=== PATIENT | female | born 1950 | race Caucasian/White ===

== ENCOUNTER → 2017-01-01 | Outpatient (CLI) | payer MEDICARE, MEDICAID ==
[~2017-01-01] MED LIST: ACET325T14 PO; ARIP5TAB6 PO; ASPI-496 PO; ATOR20TA9 PO; AZIT500T4 PO; BACL-19 PO; BENADRYL PRN; CA C1TAB39 PO; CITA20TA5 PO; CITA40TA12 PO; DILT180T7 PO; FAMO20TA7 PO; FLUT1DIS IH; GABA300C10 PO; LINA5TAB PO; METO25TA35 PO; OXYB10TA PO; TRAZ100T15 PO; [UNRECOGNIZED DRUG - OTHER]
== END | disposition home or self-care (01) ==
LOC: CFH 08:54
PROVIDERS: ATTEND Nurse Practitioner Family
DX: K76.0 Fatty (change of) liver, not elsewhere classified (principal)
CPT/HCPCS: 76700

== ENCOUNTER 2017-04-03 21:12 | Inpatient (IN) | payer MEDICARE, MEDICAID ==
[~2017-04-03] VITALS: Ht 162.6 cm; Wt 94.5 kg
[~2017-04-03 21:12] MED LIST changes: -AZIT500T4 PO; +AZIT500T77 PO
[2017-04-03 22:06] LABS: IS PT STATUS REG ER OR PRE ER? YES
[2017-04-03] MEDS ORDERED: ERGO500017 PO (22:11)
[2017-04-03] MEDS ORDERED: FLUT1AER INH (22:18)
[2017-04-03] MEDS ORDERED: SODIUM CHLORIDE 0.9% 1,000 ML IV ONE (22:48)
[2017-04-03] MEDS ORDERED: ONDANSETRON 2MG/ML, 2ML IVPush PRN (23:00)
[2017-04-04 01:04] VITALS: BP 125/56
[2017-04-04 02:00] VITALS: BP 141/78
[2017-04-04] MEDS ORDERED: LABETALOL 5MG/ML, 20ML IVPush PRN (03:30)
[2017-04-04] MEDS ORDERED: DEXTROSE 4 GM TAB.CHEW PO PRN (03:30)
[2017-04-04] MEDS ORDERED: ASPIRIN 325 MG TABLET EC PO ONE (03:30)
[2017-04-04] MEDS ORDERED: ONDANSETRON 2MG/ML, 2ML IVPush PRN (03:30)
[2017-04-04] MEDS ORDERED: DEXTROSE 50%, 50ML SYRINGE IVPush PRN (03:30)
[2017-04-04] MEDS ORDERED: GLUCAGON 1 MG IM PRN (03:30)
[2017-04-04 03:54] LABS: ASPARTATE AMINO TRANSFERASE 14 U/L (15-37); BLOOD UREA NITROGEN 21 mg/dL (7-18)
[2017-04-04 04:15] LABS: IS PT STATUS REG ER OR PRE ER? NO
[2017-04-04] MEDS: ENOXAPARIN 40 MG/0.4 ML SQ SCH (04:18)
[2017-04-04] MEDS: SODIUM CHLORIDE 0.9% 1,000 ML IV SCH ×2 (04:19→13:37)
[2017-04-04] MEDS: BACLOFEN 10 MG TABLET PO SCH ×4 (06:05→21:05)
[2017-04-04 08:30] VITALS: BP 150/84
[2017-04-04] MEDS: INSULIN ASPART 100 UNITS/ML, PEN SQ-INSULIN SCH ×4 (09:21→21:06)
[2017-04-04] MEDS: CITALOPRAM 20 MG TABLET PO SCH (09:24)
[2017-04-04] MEDS: SODIUM CHLORIDE FLUSH 10ML SYR IVF SCH ×2 (09:24→21:07)
[2017-04-04] MEDS: OXYBUTYNIN CHLORIDE 5 MG TABLET PO SCH ×2 (09:24→21:05)
[2017-04-04] MEDS: GABAPENTIN 300 MG CAPSULE PO SCH ×2 (09:24→21:05)
[2017-04-04 10:11] LABS: IS PT STATUS REG ER OR PRE ER? NO
[2017-04-04] MEDS: FLUTICASONE/VILANTEROL 100-25MCG/INH INH SCH (12:28)
[2017-04-04 14:52] VITALS: BP 134/60
[2017-04-04 18:12] VITALS: BP 142/72
[2017-04-04 20:00] VITALS: BP 137/78
[2017-04-04] MEDS ORDERED: ATORVASTATIN 20 MG TABLET PO SCH (21:00)
[2017-04-05] MEDS: SODIUM CHLORIDE 0.9% 1,000 ML IV SCH ×2 (01:34→12:15)
[2017-04-05 02:00] VITALS: BP 153/84
[2017-04-05] MEDS: BACLOFEN 10 MG TABLET PO SCH ×3 (05:00→17:05)
[2017-04-05] MEDS: ENOXAPARIN 40 MG/0.4 ML SQ SCH (05:00)
[2017-04-05] MEDS: INSULIN ASPART 100 UNITS/ML, PEN SQ-INSULIN SCH ×3 (07:00→16:00)
[2017-04-05 08:11] VITALS: BP 159/82
[2017-04-05] MEDS: FLUTICASONE/VILANTEROL 100-25MCG/INH INH SCH (08:34)
[2017-04-05] MEDS: OXYBUTYNIN CHLORIDE 5 MG TABLET PO SCH (08:35)
[2017-04-05] MEDS: GABAPENTIN 300 MG CAPSULE PO SCH (08:35)
[2017-04-05] MEDS: CITALOPRAM 20 MG TABLET PO SCH (08:35)
[2017-04-05] MEDS: SODIUM CHLORIDE FLUSH 10ML SYR IVF SCH (09:17)
[2017-04-05 14:10] VITALS: BP 170/78
== END 2017-04-05 18:37 | disposition home health service (06) | DRG 67 ==
LOC: EDBD 21:12 → MERGE 21:12 → ED 21:37 → EDIP 23:55 → CCU 04-04 00:53 → 4EST 04-04 16:44 → CCU 04-04 16:46 → 4EST 04-04 17:51
PROVIDERS: ADMIT Internal Medicine; ATTEND Internal Medicine
DX: I65.22 Occlusion and stenosis of left carotid artery (principal); G93.41 Metabolic encephalopathy; G81.94 Hemiplegia, unspecified affecting left nondominant side; I10 Essential (primary) hypertension; E11.65 Type 2 diabetes mellitus with hyperglycemia; E86.0 Dehydration; E11.40 Type 2 diabetes mellitus with diabetic neuropathy, unspecified; E11.36 Type 2 diabetes mellitus with diabetic cataract; E78.5 Hyperlipidemia, unspecified; F32.9 Major depressive disorder, single episode, unspecified; K21.9 Gastro-esophageal reflux disease without esophagitis; R26.2 Difficulty in walking, not elsewhere classified; C53.9 Malignant neoplasm of cervix uteri, unspecified; E66.9 Obesity, unspecified; Z68.35 Body mass index [BMI] 35.0-35.9, adult; Z79.82 Long term (current) use of aspirin; Z88.6 Allergy status to analgesic agent; Z88.5 Allergy status to narcotic agent; Z88.0 Allergy status to penicillin; Z88.8 Allergy status to other drugs, medicaments and biological substances; Z91.018 Allergy to other foods
CPT/HCPCS: 36415; 70450; 70551; 71010; 80047; 80053; 80061; 82962; 83036; 84443; 84484; 85025; 85610; 85730; 87081; 93005; 93306; 93880; 96360; 96361; J1650; J1815; J7030

== ENCOUNTER → 2017-04-25 | Outpatient (CLI) | payer MEDICARE, MEDICAID ==
[~2017-04-25] MED LIST changes: +ERGO500017 PO; +FLUT1AER INH
== END | disposition home or self-care (01) ==
LOC: CVU 07:43
PROVIDERS: ATTEND Internal Medicine Interventional Cardiology
DX: I70.202 Unspecified atherosclerosis of native arteries of extremities, left leg (principal); I77.1 Stricture of artery; I73.9 Peripheral vascular disease, unspecified; E11.9 Type 2 diabetes mellitus without complications; E78.5 Hyperlipidemia, unspecified; I10 Essential (primary) hypertension; Z87.891 Personal history of nicotine dependence; Z86.73 Personal history of transient ischemic attack (TIA), and cerebral infarction without residual deficits
CPT/HCPCS: 93922; 93925

== ENCOUNTER 2017-06-05 10:19 | Emergency (ER) | payer MEDICARE, MEDICAID ==
[~2017-06-05] VITALS: Ht 162.6 cm; Wt 92.0 kg
[~2017-06-05 10:19] MED LIST changes: +ARIP5TAB13 PO; -ARIP5TAB6 PO; +AZIT500T5 PO; -AZIT500T77 PO; +CLOP75TA52 PO; +DIPH25TA65 PO; +METF500T4 PO; +SENN1TAB67 PO
[2017-06-05 12:00] VITALS: BP 135/70
== END 2017-06-05 12:02 | disposition home or self-care (01) ==
LOC: ED 11:16
DX: S40.021A Contusion of right upper arm, initial encounter (principal); S80.12XA Contusion of left lower leg, initial encounter; K21.9 Gastro-esophageal reflux disease without esophagitis; I10 Essential (primary) hypertension; E11.9 Type 2 diabetes mellitus without complications; Z86.73 Personal history of transient ischemic attack (TIA), and cerebral infarction without residual deficits; W01.0XXA Fall on same level from slipping, tripping and stumbling without subsequent striking against object, initial encounter; Y93.89 Activity, other specified; Y92.009 Unspecified place in unspecified non-institutional (private) residence as the place of occurrence of the external cause; Y99.9 Unspecified external cause status
CPT/HCPCS: 99284

== ENCOUNTER 2017-09-05 11:29 | Emergency (ER) | payer MEDICARE, MEDICAID ==
[~2017-09-05] VITALS: Ht 157.5 cm; Wt 90.0 kg
[2017-09-05] MEDS ORDERED: SODIUM CHLORIDE FLUSH 10ML SYR IVF ONE (12:00)
[2017-09-05 12:06] LABS: BASOPHILS # (AUTO) 0.01 x10^3/uL (0-0.1); BASOPHILS % (AUTO) 0 % (0-1); EOSINOPHILS % (AUTO) 1 % (1-7); LYMPHOCYTES # (AUTO) 1.28 x10^3/uL (1-3.4); LYMPHOCYTES % (AUTO) 18 % (22-44); MD NO; MEAN CORPUSCULAR HEMOGLOBIN 29.4 pg (27.0-34.8); MEAN CORPUSCULAR HGB CONC 33.3 g/dL (32.4-35.8); MEAN CORPUSCULAR VOLUME 88.5 fL (80-100); MEAN PLATELET VOLUME 9.7 fL (7.4-10.4); MONOCYTES # (AUTO) 0.45 x10^3/uL (0.2-0.8); MONOCYTES % (AUTO) 6 % (2-9); NEUTROPHILS # (AUTO) 5.26 x10^3/uL (1.8-6.8); NEUTROPHILS % (AUTO) 74 % (42-75); PLATELET COUNT 131 x10^3/uL (130-400); RED BLOOD COUNT 5.45 x10^6/uL (3.82-5.3); RED CELL DISTRIBUTION WIDTH 13.2 % (9.6-15.2)
[2017-09-05 12:17] LABS: ALBUMIN 3.8 g/dL (3.4-5.0); ANION GAP 3 mmol/L (5-15); CALCIUM 9.8 mg/dL (8.5-10.1); CHLORIDE 107 mmol/L (98-107); CREATININE 0.73 mg/dL (0.55-1.02)
[2017-09-05 14:47] VITALS: BP 138/72
== END 2017-09-05 15:45 | disposition home or self-care (01) ==
LOC: ED 14:02
DX: G45.9 Transient cerebral ischemic attack, unspecified (principal); K21.9 Gastro-esophageal reflux disease without esophagitis; I10 Essential (primary) hypertension; Z88.0 Allergy status to penicillin; Z88.6 Allergy status to analgesic agent
CPT/HCPCS: 36415; 70450; 80048; 82040; 85025; 93005; 99285

== ENCOUNTER → 2017-09-05 | Outpatient (CLI) | payer MEDICARE, MEDICAID | END | disposition home or self-care (01) | LOC: CFH 08:47 | PROVIDERS: ATTEND Licensed Practical Nurse | DX: Z12.31 Encounter for screening mammogram for malignant neoplasm of breast (principal) | CPT/HCPCS: G0202 ==

== ENCOUNTER → 2017-10-23 | Outpatient (CLI) | payer MEDICARE, MEDICAID ==
[~2017-10-23] MED LIST changes: +OMNIPAQUE 350 MG/ML, 100ML BOTTLE ONE
== END | disposition home or self-care (01) ==
LOC: CFH 08:44
PROVIDERS: ATTEND Surgery Vascular Surgery
DX: I65.23 Occlusion and stenosis of bilateral carotid arteries (principal)
CPT/HCPCS: 70498; 82565; Q9967

== ENCOUNTER → 2017-11-08 | Outpatient (CLI) | payer MEDICARE, MEDICAID ==
[~2017-11-08] MED LIST changes: -OMNIPAQUE 350 MG/ML, 100ML BOTTLE ONE
== END | disposition home or self-care (01) ==
LOC: CFH 09:54
PROVIDERS: ATTEND Nurse Practitioner Family
DX: M54.6 Pain in thoracic spine (principal)
CPT/HCPCS: 72072

== ENCOUNTER 2018-07-07 23:57 | Emergency (ER) | payer MEDICARE, MEDICAID ==
[~2018-07-07] VITALS: Ht 160 cm; Wt 84.4 kg
[~2018-07-07 23:57] MED LIST changes: -CITA20TA5 PO; +CITA20TA6 PO; +METF500T17 PO; -METF500T4 PO; +TRAZ-137 PO; -TRAZ100T15 PO
[2018-07-08 03:17] VITALS: BP 141/62
== END 2018-07-08 03:20 | disposition home or self-care (01) ==
LOC: ED 07-08 00:53
DX: S16.1XXA Strain of muscle, fascia and tendon at neck level, initial encounter (principal); S06.320A Contusion and laceration of left cerebrum without loss of consciousness, initial encounter; M25.552 Pain in left hip; E11.9 Type 2 diabetes mellitus without complications; I10 Essential (primary) hypertension; J44.9 Chronic obstructive pulmonary disease, unspecified; F17.200 Nicotine dependence, unspecified, uncomplicated; W01.0XXA Fall on same level from slipping, tripping and stumbling without subsequent striking against object, initial encounter; Y93.89 Activity, other specified; Y92.009 Unspecified place in unspecified non-institutional (private) residence as the place of occurrence of the external cause; Y99.8 Other external cause status
CPT/HCPCS: 70450; 72125; 99284

== ENCOUNTER 2018-09-08 23:54 | Emergency (ER) | payer MEDICARE, MEDICAID ==
[~2018-09-08] VITALS: Ht 160 cm; Wt 86.5 kg
[~2018-09-08 23:54] MED LIST changes: +ALBU18HF INH; +ATOR20TA37 PO; -ATOR20TA9 PO
[2018-09-09] MEDS ORDERED: ACETAMINOPHEN 500 MG TABLET PO ONE (00:30)
[2018-09-09] MEDS ORDERED: ACETAMINOPHEN 500 MG TABLET ONE (00:46)
[2018-09-09 02:18] VITALS: BP 147/70
== END 2018-09-09 02:39 | disposition home or self-care (01) ==
LOC: ED 09-09 00:12
DX: S00.83XA Contusion of other part of head, initial encounter (principal); K21.9 Gastro-esophageal reflux disease without esophagitis; I10 Essential (primary) hypertension; E11.9 Type 2 diabetes mellitus without complications; C53.9 Malignant neoplasm of cervix uteri, unspecified; R51 Headache; F17.200 Nicotine dependence, unspecified, uncomplicated; Z86.73 Personal history of transient ischemic attack (TIA), and cerebral infarction without residual deficits; Z90.49 Acquired absence of other specified parts of digestive tract; W19.XXXA Unspecified fall, initial encounter; Y93.89 Activity, other specified; Y92.009 Unspecified place in unspecified non-institutional (private) residence as the place of occurrence of the external cause; Y99.8 Other external cause status
CPT/HCPCS: 70450; 70486; 71045; 72125; 93005; 99284

== ENCOUNTER 2018-10-01 18:09 | Emergency (ER) | payer MEDICARE, MEDICAID ==
[~2018-10-01] VITALS: Ht 160 cm; Wt 92.0 kg
--- NOTE | 2018-10-01 19:06 | NUR ---
PT REPORT FROM LANIE MILES. PT XR DONE; AWAITING RE-EVAL FROM PROVIDER.
[2018-10-01] MEDS ORDERED: ASPI-496 PO (19:37)
[2018-10-01 19:47] VITALS: BP 148/70
== END 2018-10-01 19:50 | disposition home or self-care (01) ==
LOC: ED 19:20
DX: S63.522A Sprain of radiocarpal joint of left wrist, initial encounter (principal); M19.131 Post-traumatic osteoarthritis, right wrist; K21.9 Gastro-esophageal reflux disease without esophagitis; E78.5 Hyperlipidemia, unspecified; I10 Essential (primary) hypertension; E11.9 Type 2 diabetes mellitus without complications; Z86.73 Personal history of transient ischemic attack (TIA), and cerebral infarction without residual deficits; Z85.41 Personal history of malignant neoplasm of cervix uteri; Z90.49 Acquired absence of other specified parts of digestive tract; F17.200 Nicotine dependence, unspecified, uncomplicated; W19.XXXA Unspecified fall, initial encounter; Y93.89 Activity, other specified; Y92.009 Unspecified place in unspecified non-institutional (private) residence as the place of occurrence of the external cause; Y99.8 Other external cause status
CPT/HCPCS: 29260; 99283

== ENCOUNTER 2019-02-24 11:22 | Inpatient (IN) | payer MEDICARE, MEDICAID ==
[~2019-02-24] VITALS: Ht 160 cm; Wt 84.7 kg
[2019-02-24] MEDS ORDERED: PLEASE ENTER HEIGHT AND WEIGHT MC SCH (11:38)
[2019-02-24] MEDS ORDERED: ONDANSETRON 2MG/ML, 2ML ONE (11:51)
[2019-02-24] MEDS ORDERED: HYDROmorphone 2 MG/ML, 1ML ONE (11:52)
[2019-02-24 11:58] LABS: BASOPHILS # (AUTO) 0.01 x10^3/uL (0-0.1); BASOPHILS % (AUTO) 0 % (0-1); EOSINOPHILS # (AUTO) 0.08 x10^3/uL (0-0.4); EOSINOPHILS % (AUTO) 1 % (1-7); LYMPHOCYTES # (AUTO) 1.09 x10^3/uL (1-3.4); LYMPHOCYTES % (AUTO) 10 % (22-44); MD NO; MEAN CORPUSCULAR HEMOGLOBIN 31.1 pg (27.0-34.8); MEAN CORPUSCULAR HGB CONC 33.2 g/dL (32.4-35.8); MEAN CORPUSCULAR VOLUME 93.5 fL (80-100); MEAN PLATELET VOLUME 8.8 fL (7.4-10.4); MONOCYTES # (AUTO) 0.48 x10^3/uL (0.2-0.8); MONOCYTES % (AUTO) 4 % (2-9); NEUTROPHILS # (AUTO) 9.25 x10^3/uL (1.8-6.8); NEUTROPHILS % (AUTO) 85 % (42-75); PLATELET COUNT 174 x10^3/uL (130-400); RED CELL DISTRIBUTION WIDTH 13.7 % (9.6-15.2)
[2019-02-24] MEDS ORDERED: HYDROmorphone 1 MG/ML, 1ML INJ IVPush PRN (12:00)
[2019-02-24] MEDS ORDERED: ONDANSETRON 2MG/ML, 2ML IVPush ONE (12:00)
[2019-02-24] MEDS ORDERED: SODIUM CHLORIDE FLUSH 10ML SYR IVF ONE (12:00)
--- NOTE | 2019-02-24 12:04 | NUR ---
GLF LAST NIGHT AND COULD NOT GET UP. BACK PAIN, BUTTOCK PAIN AND PAIN TO BACK OF HEAD. MEDICATED FOR PAIN PER ORDERS AND ONTO BED MARTINEZ
[2019-02-24 12:05] LABS: ALBUMIN 3.8 g/dL (3.4-5.0); ANION GAP 4 mmol/L (5-15); CALCIUM 9.7 mg/dL (8.5-10.1); CHLORIDE 108 mmol/L (98-107)
--- NOTE | 2019-02-24 12:07 | NUR ---
CT DELAY;NEED MEDS & BEDPAN
[2019-02-24 12:08] LABS: CREATININE 0.86 mg/dL (0.55-1.02)
--- NOTE | 2019-02-24 12:10 | NUR ---
TO XRAY VIA ELISA
--- NOTE | 2019-02-24 12:51 | NUR ---
BACK ON FLOOR FROM XRAY AND CT. PLACED ON MONITOR. BREATHING EVEN AND UNLABORED
[2019-02-24 13:15] LABS: MICROSCOPIC INDICATED
[2019-02-24 13:16] LABS: CULTURE INDICATED? YES
--- NOTE | 2019-02-24 13:45 | NUR ---
SLEEPING, NO DISTRESS
--- NOTE | 2019-02-24 14:44 | NUR ---
PT UNABLE TO STAND AND BEAR WEIGHT WITH WALKER. LEFT LEG WEAKNESS FROM PREVIOUS STROKE PRONOUNCED AND UNABLE TO STRAIGHTEN OUT LEG. PT NORMALLY USES A WALKER AT HOME. ADDITONALLY ROOM AIR OXYGEN NOTED TO BE 78 PERCENT. MADE AWARE
--- NOTE | 2019-02-24 15:42 | NUR ---
PT SLEEPING. CONTINUE TO OBSERVE
[2019-02-24] MEDS ORDERED: CEFTRIAXONE PMX 1GM/50ML 50 ML ONE (15:51)
[2019-02-24] MEDS: BACLOFEN 10 MG TABLET PO SCH ×2 (16:00→20:41)
[2019-02-24] MEDS ORDERED: DEXTROSE 4 GM TAB.CHEW PO PRN (16:00)
[2019-02-24] MEDS ORDERED: ONDANSETRON 2MG/ML, 2ML IVPush PRN (16:00)
[2019-02-24] MEDS ORDERED: GLUCAGON 1 MG IM PRN (16:00)
[2019-02-24] MEDS ORDERED: DIPHENHYDRAMINE 25 MG CAPSULE PO PRN (16:00)
[2019-02-24] MEDS ORDERED: CEFTRIAXONE PMX 1GM/50ML 50 ML IVPB ONE (16:00)
[2019-02-24] MEDS: INSULIN LISPRO 100 UNITS/ML, PEN SQ-INSULIN SCH ×2 (16:00→20:54)
[2019-02-24] MEDS ORDERED: DEXTROSE 50%, 50ML SYRINGE IVPush PRN (16:00)
--- NOTE | 2019-02-24 17:19 | NUR ---
REPORT TO BASIA DELA CRUZ
[2019-02-24] MEDS ORDERED: ALBUTEROL SULFATE 2.5 MG/3 ML NPPB SCH (18:00)
[2019-02-24] MEDS: NICOTINE 14MG/24 HR PATCH.TD24 TD SCH (18:00)
[2019-02-24 20:36] VITALS: BP 158/75
[2019-02-24] MEDS: LACTULOSE 10 GM/15 ML UDC PO SCH (20:40)
[2019-02-24] MEDS: METOPROLOL TARTRATE 25 MG TABLET PO SCH (20:41)
[2019-02-24] MEDS: ATORVASTATIN 40 MG TABLET PO SCH (20:41)
[2019-02-24] MEDS: GABAPENTIN 300 MG CAPSULE PO SCH (20:41)
[2019-02-24] MEDS: POTASSIUM CHLORIDE 20 MEQ in SODIUM CHLORIDE 0.9% 1,000 ML IV SCH (20:41)
[2019-02-24] MEDS: TRAZODONE 100MG TABLET PO SCH (20:41)
[2019-02-24] MEDS: OXYBUTYNIN CHLORIDE 5 MG TABLET PO SCH (20:41)
[2019-02-24] MEDS: SODIUM CHLORIDE FLUSH 10ML SYR IVF SCH (20:54)
[2019-02-24 22:34] VITALS: BP 147/58
[2019-02-25 00:34] VITALS: BP 134/58
[2019-02-25] MEDS: ACETAMINOPHEN 650 MG/20.3 ML UDC PO PRN ×2 (01:13→05:23)
[2019-02-25 02:07] VITALS: BP 127/56
[2019-02-25] MEDS: POTASSIUM CHLORIDE 20 MEQ in SODIUM CHLORIDE 0.9% 1,000 ML IV SCH ×2 (04:08→13:42)
[2019-02-25 04:09] VITALS: BP 132/66
[2019-02-25 05:13] LABS: CHOL/HDL RATIO 4.3; LDL/HDL RATIO 1.9 (0.5-3.0)
[2019-02-25] MEDS: BACLOFEN 10 MG TABLET PO SCH ×4 (05:23→20:14)
[2019-02-25 05:56] VITALS: BP 131/59
[2019-02-25] MEDS: INSULIN LISPRO 100 UNITS/ML, PEN SQ-INSULIN SCH ×4 (07:00→20:18)
[2019-02-25] MEDS: DILTIAZEM CD 180 MG CAP.ER.24H PO SCH (08:39)
[2019-02-25] MEDS: ASPIRIN 81 MG TABLET CHEW PO/NG SCH (08:39)
[2019-02-25] MEDS: GABAPENTIN 300 MG CAPSULE PO SCH ×2 (08:39→20:13)
[2019-02-25] MEDS: CITALOPRAM 20 MG TABLET PO SCH (08:39)
[2019-02-25] MEDS: METOPROLOL TARTRATE 25 MG TABLET PO SCH ×2 (08:41→20:15)
[2019-02-25] MEDS: FAMOTIDINE 20 MG TABLET PO SCH (08:41)
[2019-02-25] MEDS: SENNA/DOCUSATE TABLET PO SCH (08:42)
[2019-02-25] MEDS: OXYBUTYNIN CHLORIDE 5 MG TABLET PO SCH ×2 (08:42→20:14)
[2019-02-25] MEDS: LACTULOSE 10 GM/15 ML UDC PO SCH ×2 (08:42→20:13)
[2019-02-25] MEDS: SODIUM CHLORIDE FLUSH 10ML SYR IVF SCH ×2 (08:43→20:15)
[2019-02-25] MEDS: ALBUTEROL SULFATE 2.5 MG/3 ML NPPB SCH ×2 (10:15→19:32)
[2019-02-25 14:29] VITALS: BP 135/64
[2019-02-25] MEDS: CEFTRIAXONE PMX 1GM/50ML 50 ML IV SCH (16:19)
[2019-02-25] MEDS: AZITHROMYCIN 500 MG in SODIUM CHLORIDE 0.9% 250 ML IV SCH (16:30)
[2019-02-25 19:03] VITALS: BP 131/79
[2019-02-25] MEDS: ATORVASTATIN 40 MG TABLET PO SCH (20:14)
[2019-02-25] MEDS: TRAZODONE 100MG TABLET PO SCH (20:14)
[2019-02-26] VITALS: BP 133/78
[2019-02-26 04:15] VITALS: BP 118/70
[2019-02-26 05:04] LABS: BASOPHILS # (AUTO) 0.04 x10^3/uL (0-0.1); BASOPHILS % (AUTO) 0 % (0-1); EOSINOPHILS # (AUTO) 0.11 x10^3/uL (0-0.4); EOSINOPHILS % (AUTO) 1 % (1-7); LYMPHOCYTES # (AUTO) 1.29 x10^3/uL (1-3.4); LYMPHOCYTES % (AUTO) 15 % (22-44); MD NO; MEAN CORPUSCULAR HEMOGLOBIN 30.8 pg (27.0-34.8); MEAN CORPUSCULAR HGB CONC 32.5 g/dL (32.4-35.8); MEAN CORPUSCULAR VOLUME 94.6 fL (80-100); MEAN PLATELET VOLUME 8.8 fL (7.4-10.4); MONOCYTES # (AUTO) 0.54 x10^3/uL (0.2-0.8); MONOCYTES % (AUTO) 6 % (2-9); NEUTROPHILS # (AUTO) 6.69 x10^3/uL (1.8-6.8); NEUTROPHILS % (AUTO) 77 % (42-75); PLATELET COUNT 149 x10^3/uL (130-400); RED BLOOD COUNT 4.66 x10^6/uL (3.82-5.3); RED CELL DISTRIBUTION WIDTH 13.9 % (9.6-15.2)
[2019-02-26 05:25] LABS: ALANINE AMINOTRANSFERASE 19 U/L (12-78); ALBUMIN 3.1 g/dL (3.4-5.0); ANION GAP 6 mmol/L (5-15); CALCIUM 9.2 mg/dL (8.5-10.1); CHLORIDE 108 mmol/L (98-107)
[2019-02-26 05:27] LABS: ALKALINE PHOSPHATASE 128 U/L (45-117); BILIRUBIN,TOTAL 0.5 mg/dL (0.2-1.0); CREATININE 0.68 mg/dL (0.55-1.02); TOTAL PROTEIN 6.6 g/dL (6.4-8.2)
[2019-02-26] MEDS: BACLOFEN 10 MG TABLET PO SCH ×3 (05:27→16:13)
[2019-02-26 05:59] LABS: HEMOGLOBIN A1C 6.8 % (4.2-6.3)
[2019-02-26] MEDS: ACETAMINOPHEN 650 MG/20.3 ML UDC PO PRN ×2 (06:29→12:01)
[2019-02-26] MEDS ORDERED: ALBUTEROL SULFATE 2.5 MG/3 ML NPPB PRN (07:30)
[2019-02-26] MEDS: INSULIN LISPRO 100 UNITS/ML, PEN SQ-INSULIN SCH ×3 (08:03→16:00)
[2019-02-26] MEDS: CITALOPRAM 20 MG TABLET PO SCH (08:03)
[2019-02-26] MEDS: OXYBUTYNIN CHLORIDE 5 MG TABLET PO SCH (08:03)
[2019-02-26] MEDS: ASPIRIN 81 MG TABLET CHEW PO/NG SCH (08:04)
[2019-02-26] MEDS: DILTIAZEM CD 180 MG CAP.ER.24H PO SCH (08:04)
[2019-02-26] MEDS: METOPROLOL TARTRATE 25 MG TABLET PO SCH (08:04)
[2019-02-26] MEDS: SENNA/DOCUSATE TABLET PO SCH (08:04)
[2019-02-26] MEDS: LACTULOSE 10 GM/15 ML UDC PO SCH (08:04)
[2019-02-26] MEDS: GABAPENTIN 300 MG CAPSULE PO SCH (08:04)
[2019-02-26] MEDS: NICOTINE 14MG/24 HR PATCH.TD24 TD SCH (08:13)
[2019-02-26] MEDS: FAMOTIDINE 20 MG TABLET PO SCH (08:15)
[2019-02-26 08:21] VITALS: BP 131/87
[2019-02-26] MEDS: ALBUTEROL SULFATE 2.5 MG/3 ML NPPB SCH ×2 (09:00→14:40)
[2019-02-26] MEDS: SODIUM CHLORIDE FLUSH 10ML SYR IVF SCH (09:00)
[2019-02-26] MEDS ORDERED: BUDESONIDE 0.5 MG/2 ML INHA INH SCH (09:00)
[2019-02-26] MEDS ORDERED: ATOR40TA78 PO (12:12)
[2019-02-26] MEDS ORDERED: CEFD300C37 PO (12:12)
[2019-02-26] MEDS ORDERED: AZIT500T5 PO (12:12)
[2019-02-26] MEDS: CEFTRIAXONE PMX 1GM/50ML 50 ML IV SCH (16:00)
[2019-02-26] MEDS: AZITHROMYCIN 500 MG in SODIUM CHLORIDE 0.9% 250 ML IV SCH (16:14)
== END 2019-02-26 17:12 | disposition home health service (06) | DRG 193 ==
LOC: EDBD → MERGE 11:22 → ED 16:16 → EDIP 16:52 → 4WST 18:18
PROVIDERS: ADMIT Internal Medicine; ATTEND Internal Medicine
DX: J18.9 Pneumonia, unspecified organism (principal); J96.01 Acute respiratory failure with hypoxia; I69.354 Hemiplegia and hemiparesis following cerebral infarction affecting left non-dominant side; D75.1 Secondary polycythemia; I48.91 Unspecified atrial fibrillation; E11.9 Type 2 diabetes mellitus without complications; E78.5 Hyperlipidemia, unspecified; F17.210 Nicotine dependence, cigarettes, uncomplicated; F32.9 Major depressive disorder, single episode, unspecified; Z88.6 Allergy status to analgesic agent; I10 Essential (primary) hypertension; Z88.3 Allergy status to other anti-infective agents; Z88.0 Allergy status to penicillin; I65.23 Occlusion and stenosis of bilateral carotid arteries; Z91.018 Allergy to other foods; J44.9 Chronic obstructive pulmonary disease, unspecified; K21.9 Gastro-esophageal reflux disease without esophagitis; M41.9 Scoliosis, unspecified; R29.6 Repeated falls; S00.93XA Contusion of unspecified part of head, initial encounter; Z82.49 Family history of ischemic heart disease and other diseases of the circulatory system; Z85.41 Personal history of malignant neoplasm of cervix uteri; Z99.81 Dependence on supplemental oxygen; W18.39XA Other fall on same level, initial encounter; Y93.89 Activity, other specified; Y92.89 Other specified places as the place of occurrence of the external cause; Y99.8 Other external cause status; M43.17 Spondylolisthesis, lumbosacral region; G93.89 Other specified disorders of brain
CPT/HCPCS: 0399T; 36415; 70450; 70551; 71045; 72072; 72110; 72170; 80048; 80053; 80061; 81001; 82040; 82962; 83036; 84145; 85025; 87086; 93306; 93880; 94640; 96374; 96375; 99285; G0378; J0456; J0696; J1170; J2405; J3480; J7613; J7626; 92523-GN; J1815; J7030; J7050

== ENCOUNTER 2019-11-21 11:54 | Emergency (ER) | payer MEDICARE, MEDICAID ==
[~2019-11-21] VITALS: Ht 160 cm; Wt 85.0 kg
[~2019-11-21 11:54] MED LIST changes: +ACET325C6 PO; +ALEN10TA10 PO; +ATOR40TA78 PO; +AZIT500T10 PO; -AZIT500T5 PO; +CALC1TAB68 PO; +CARV6.2512 PO; +CEFD300C37 PO; +INSU100I11 SQ-INSULIN; +METF850T PO; +NICO-486 TD; -OXYB10TA PO; +OXYB10TA26 PO; +POLY454P4 PO; +SENN-193 PO; -TRAZ-137 PO; +TRAZ-175 PO
--- NOTE | 2019-11-21 12:07 | NUR ---
69 Y/O FEMALE PRESENTS TO ED WITH C/O MGLF. PER REPORT PT FELL THIS MORNING AT 0700 D/T HER "LEGS GIVING OUT." PT STATES IT HAS HAPPENED BEFORE AND THAT'S WHEN SHE HAD HER HIP REPLACED. PT C/O RIGHT SHOULDER PAIN. PT PLACED ON CONT PULSE OX,NIBP, WOOD FLOOR REFINISHER. NO C/O N/V/D, SYNCOPE, CP, SOB. PT WEARS HOME OXYGEN AT 3 LPM
--- NOTE | 2019-11-21 12:12 | NUR ---
PT PLACED ON BED MARTINEZ. PT WAS UNABLE TO URINATE AT THIS TIME. BEDPAN REMOVED.
[2019-11-21] MEDS ORDERED: SODIUM CHLORIDE 0.9% 1,000ML IVBOLUS ONE (12:30)
--- NOTE | 2019-11-21 12:35 | NUR ---
PT TO IMAGING
[2019-11-21 12:45] LABS: BASOPHILS # (AUTO) 0.03 x10^3/uL (0-0.1); BASOPHILS % (AUTO) 0 % (0-1); EOSINOPHILS # (AUTO) 0.07 x10^3/uL (0-0.4); EOSINOPHILS % (AUTO) 1 % (1-7); LYMPHOCYTES # (AUTO) 1.55 x10^3/uL (1-3.4); LYMPHOCYTES % (AUTO) 19 % (22-44); MD NO; MEAN CORPUSCULAR HEMOGLOBIN 31.5 pg (27.0-34.8); MEAN CORPUSCULAR HGB CONC 33.8 g/dL (32.4-35.8); MEAN CORPUSCULAR VOLUME 93.2 fL (80-100); MEAN PLATELET VOLUME 9.3 fL (7.4-10.4); MONOCYTES # (AUTO) 0.44 x10^3/uL (0.2-0.8); MONOCYTES % (AUTO) 5 % (2-9); NEUTROPHILS # (AUTO) 6.11 x10^3/uL (1.8-6.8); NEUTROPHILS % (AUTO) 75 % (42-75); PLATELET COUNT 181 x10^3/uL (130-400); RED BLOOD COUNT 4.36 x10^6/uL (3.82-5.3); RED CELL DISTRIBUTION WIDTH 13.6 % (9.6-15.2)
[2019-11-21 12:50] LABS: ALANINE AMINOTRANSFERASE 34 U/L (12-78); ANION GAP 7 mmol/L (5-15); CALCIUM 9.4 mg/dL (8.5-10.1); CHLORIDE 114 mmol/L (98-107); CREATININE 1.06 mg/dL (0.55-1.02)
[2019-11-21 12:52] LABS: ALKALINE PHOSPHATASE 170 U/L (45-117); BILIRUBIN,TOTAL 0.3 mg/dL (0.2-1.0); CREATINE KINASE, TOTAL 190 U/L (26-192); TOTAL PROTEIN 7.6 g/dL (6.4-8.2)
--- NOTE | 2019-11-21 12:53 | NUR ---
PT BACK FROM IMAGING
--- NOTE | 2019-11-21 13:21 | NUR ---
PT BEING TAKEN TO CT.
[2019-11-21 13:58] VITALS: BP 142/59
--- NOTE | 2019-11-21 13:58 | NUR ---
PT PLACED ON BEDPAN
--- NOTE | 2019-11-21 13:59 | NUR ---
LATE ENTRY FOR 1345 PT BACK FROM IMAGING.
[2019-11-21] MEDS ORDERED: OMNIPAQUE 350 MG/ML, 100ML BOTTLE ONE (14:10)
--- NOTE | 2019-11-21 14:28 | NUR ---
LUNCH BREAK NOTE: PT TAKEN OFF BED MARTINEZ BUT NOT ABLE TO COLLECT UA PT VOIDED PAST BEDPAN. LINENS CHANGED.
--- NOTE | 2019-11-21 15:11 | NUR ---
LATE ENTRY FOR 1501 PT ABLE TO STAND WITH STEADY GAIT. PT STATES "I ALWAYS USE A WALKER AND SCOOTER AT HOME. I FEEL FINE TO GO HOME. I HAVE SOMEONE TO CALL AND THEY WILL BRING MY WALKER."
--- NOTE | 2019-11-21 15:50 | NUR ---
THROUGHPUT: [facility] TO TRANSPORT PT BACK HOME ~1600 TODAY, PER MORE.
--- NOTE | 2019-11-21 16:10 | NUR ---
\Patient/Caregiver given discharge instructions and they have confirmed that they understand the instructions. Patient ambulatory with steady gait. PT LEFT WITH ALL PERSONAL BELONGINGS, INCLUDING PT TRAZODONE, CELL PHONE AND KEYS. . PT LEFT WITH [facility].
== END 2019-11-21 16:13 | disposition home or self-care (01) ==
LOC: ED 14:35
DX: S43.421A Sprain of right rotator cuff capsule, initial encounter (principal); I10 Essential (primary) hypertension; E11.9 Type 2 diabetes mellitus without complications; K21.9 Gastro-esophageal reflux disease without esophagitis; Z86.73 Personal history of transient ischemic attack (TIA), and cerebral infarction without residual deficits; Z85.41 Personal history of malignant neoplasm of cervix uteri; W18.30XA Fall on same level, unspecified, initial encounter; Y93.89 Activity, other specified; Y92.89 Other specified places as the place of occurrence of the external cause; Y99.8 Other external cause status
CPT/HCPCS: 36415; 71045; 73030; 74177; 80053; 80307; 82550; 85025; 93005; 99285; J7030; Q9967

== ENCOUNTER → 2019-11-26 | Outpatient (CLI) | payer MEDICARE, MEDICAID | END | disposition home or self-care (01) | LOC: CFH 12:03 | PROVIDERS: ATTEND Nurse Practitioner Family | DX: S06.9X9A Unspecified intracranial injury with loss of consciousness of unspecified duration, initial encounter (principal); S00.03XA Contusion of scalp, initial encounter; G93.89 Other specified disorders of brain; W18.30XA Fall on same level, unspecified, initial encounter; Y93.89 Activity, other specified; Y92.89 Other specified places as the place of occurrence of the external cause; Y99.8 Other external cause status | CPT/HCPCS: 70450 ==

== ENCOUNTER 2020-01-06 10:21 | Emergency (ER) | payer MEDICARE, MEDICAID ==
[~2020-01-06] VITALS: Ht 160 cm; Wt 83.0 kg
[2020-01-06] MEDS ORDERED: SODIUM CHLORIDE FLUSH 10ML SYR IVF ONE (11:00)
--- NOTE | 2020-01-06 11:41 | NUR ---
DAUGHTER, JOVANI, . OKAY TO UPDATE.
[2020-01-06 11:46] LABS: BASOPHILS # (AUTO) 0.03 x10^3/uL (0-0.1); BASOPHILS % (AUTO) 0 % (0-1); EOSINOPHILS # (AUTO) 0.04 x10^3/uL (0-0.4); EOSINOPHILS % (AUTO) 1 % (1-7); LYMPHOCYTES # (AUTO) 1.52 x10^3/uL (1-3.4); LYMPHOCYTES % (AUTO) 20 % (22-44); MD NO; MEAN CORPUSCULAR HEMOGLOBIN 31.3 pg (27.0-34.8); MEAN CORPUSCULAR HGB CONC 33.1 g/dL (32.4-35.8); MEAN CORPUSCULAR VOLUME 94.8 fL (80-100); MEAN PLATELET VOLUME 8.5 fL (7.4-10.4); MONOCYTES % (AUTO) 5 % (2-9); NEUTROPHILS # (AUTO) 5.77 x10^3/uL (1.8-6.8); NEUTROPHILS % (AUTO) 74 % (42-75); PLATELET COUNT 172 x10^3/uL (130-400); RED BLOOD COUNT 4.71 x10^6/uL (3.82-5.3); RED CELL DISTRIBUTION WIDTH 13.6 % (9.6-15.2)
[2020-01-06 11:52] LABS: MICROSCOPIC NOT IND
[2020-01-06 11:53] LABS: CULTURE INDICATED? NO
--- NOTE | 2020-01-06 11:56 | NUR ---
PT LAYING IN BED, RESPIRATIONS EVEN AND UNLABORED, WATCHING TV, VSS, NO SIGNS OF DISTRESS. WILL CONTINUE TO MONITOR.
[2020-01-06 11:57] VITALS: BP 141/61
[2020-01-06 11:57] LABS: ALANINE AMINOTRANSFERASE 29 U/L (12-78); ALBUMIN 3.9 g/dL (3.4-5.0); ANION GAP 7 mmol/L (5-15); CALCIUM 9.5 mg/dL (8.5-10.1); CHLORIDE 109 mmol/L (98-107); CREATININE 0.81 mg/dL (0.55-1.02)
[2020-01-06 11:59] LABS: ALKALINE PHOSPHATASE 121 U/L (45-117); BILIRUBIN,TOTAL 0.4 mg/dL (0.2-1.0); TOTAL PROTEIN 7.6 g/dL (6.4-8.2)
[2020-01-06] MEDS ORDERED: CLOP75TA52 PO (12:00)
--- NOTE | 2020-01-06 12:28 | NUR ---
pt back from imaging, respirations even and unlabored, laying in bed, no signs of distress.
[2020-01-06] MEDS ORDERED: OMNIPAQUE 350 MG/ML, 100ML BOTTLE ONE (12:29)
--- NOTE | 2020-01-06 13:13 | NUR ---
PT BEING EDUCATED ABOUT [facility] C[facility]. VSS.
== END 2020-01-06 13:42 | disposition home or self-care (01) ==
LOC: ED 11:11
DX: R10.13 Epigastric pain (principal); E11.9 Type 2 diabetes mellitus without complications; I10 Essential (primary) hypertension; E78.5 Hyperlipidemia, unspecified; K21.9 Gastro-esophageal reflux disease without esophagitis; Z86.73 Personal history of transient ischemic attack (TIA), and cerebral infarction without residual deficits; Z90.710 Acquired absence of both cervix and uterus
CPT/HCPCS: 36415; 74177; 80053; 81003; 83690; 85025; 93005; 99285; Q9967

== ENCOUNTER 2020-03-23 13:57 | Outpatient (CLI) | payer MEDICARE, MEDICAID ==
[2020-03-23] MEDS ORDERED: ATOR40TA78 PO (14:52)
[2020-03-23] MEDS ORDERED: METF850T10 PO (14:52)
[2020-03-23] MEDS ORDERED: NICO-486 TD (14:52)
[2020-03-23] MEDS ORDERED: CALC-126 PO (14:52)
[2020-03-23] MEDS ORDERED: ALEN10TA10 PO (14:52)
[2020-03-23] MEDS ORDERED: CARV6.2512 PO (14:52)
== END 2020-03-23 23:59 | disposition home or self-care (01) ==
LOC: STAR 13:57
PROVIDERS: ATTEND Surgery Vascular Surgery
DX: Z02.9 Encounter for administrative examinations, unspecified (principal)

== ENCOUNTER 2020-03-28 08:00 | Day surgery (SDC) | payer MEDICARE, MEDICAID ==
[~2020-03-28] VITALS: Ht 160 cm; Wt 80.9 kg
[~2020-03-28 08:00] MED LIST changes: +BACITRACIN 50,000 UNIT ONE; +BUPIVACAINE/PF-EPI 0.5% 1:200K ONE; +CALC-126 PO; +METF850T10 PO
[2020-03-28 08:50] VITALS: BP 159/85
[2020-03-28] MEDS ORDERED: LACTATED RINGERS 1,000 ML IV SCH (08:50)
[2020-03-28] MEDS ORDERED: CHLORHEXIDINE 15 ML UDC MM ONE (09:00)
[2020-03-28] MEDS ORDERED: CARVEDILOL 6.25 MG TABLET PO SCH (10:00)
[2020-03-28] MEDS ORDERED: LABETALOL 5MG/ML, 20ML ONE (10:17)
[2020-03-28] MEDS ORDERED: GLYCOPYRROLATE 0.2MG/1ML, 5ML ONE (10:19)
[2020-03-28] MEDS ORDERED: NEOSTIGMINE 1 MG/ML, 10ML ONE (10:19)
[2020-03-28] MEDS ORDERED: ONDANSETRON 2MG/ML, 2ML ONE (10:19)
[2020-03-28] MEDS ORDERED: SUCCINYLCHOLINE 20 MG/ML, 10ML ONE (10:19)
[2020-03-28] MEDS ORDERED: CEFAZOLIN 1,000 MG ONE (10:19)
[2020-03-28] MEDS ORDERED: ROCURONIUM 10MG/ML,5ML ONE (10:19)
[2020-03-28] MEDS ORDERED: PROPOFOL 10 MG/ML, 20ML ONE (10:19)
[2020-03-28] MEDS ORDERED: DEXAMETHASONE 4 MG/ML, 1ML ONE (10:19)
[2020-03-28] MEDS ORDERED: FENTANYL PF 250 MCG/5ML ONE (10:19)
[2020-03-28] MEDS ORDERED: PROMETHAZINE 25 MG/ML, 1ML IVPush PRN (10:30)
[2020-03-28] MEDS ORDERED: LORazepam 2 MG/ML, 1ML IVPush PRN (10:30)
[2020-03-28] MEDS ORDERED: PROMETHAZINE 25 MG SUPP PR PRN (10:30)
[2020-03-28] MEDS ORDERED: hydrALAzine 20 MG/ML, 1ML IV PRN (10:30)
[2020-03-28] MEDS ORDERED: LABETALOL 5MG/ML, 20ML IV PRN (10:30)
[2020-03-28] MEDS ORDERED: ONDANSETRON 2MG/ML, 2ML IVPush PRN (10:30)
[2020-03-28] MEDS ORDERED: ACETAMINOPHEN 325 MG TABLET PO PRN (10:30)
[2020-03-28] MEDS ORDERED: HYDROmorphone 1 MG/ML, 1ML INJ IVPush PRN (10:30)
[2020-03-28] MEDS ORDERED: LIDOCAINE-MPF 2% ,5ML ONE (10:33)
[2020-03-28] MEDS ORDERED: KETOROLAC 30 MG/1 ML ONE (11:09)
[2020-03-28] MEDS ORDERED: OXYcodone 5 MG/5 ML ORAL.SOL UDC ONE ×2 (11:39→12:46)
[2020-03-28] MEDS ORDERED: FENTANYL PF 100 MCG/2ML ONE (11:39)
[2020-03-28] MEDS: FENTANYL PF 100 MCG/2ML IV PRN ×2 (11:40→12:00)
[2020-03-28] MEDS ORDERED: ACETAMINOPHEN 650 MG/20.3 ML UDC ONE (11:43)
[2020-03-28] MEDS: OXYcodone 5 MG/5 ML ORAL.SOL UDC PO PRN ×2 (11:50→12:45)
[2020-03-28] MEDS ORDERED: ACETAMINOPHEN 325 MG TABLET ONE (12:46)
[2020-03-28] MEDS ORDERED: ALBUTEROL SULFATE 2.5 MG/3 ML NPPB STA (16:46)
== END 2020-03-28 17:35 | disposition home or self-care (01) ==
LOC: OR 08:00
PROVIDERS: ATTEND Surgery Vascular Surgery
DX: K43.2 Incisional hernia without obstruction or gangrene (principal); Z11.59 Encounter for screening for other viral diseases; I10 Essential (primary) hypertension; J44.9 Chronic obstructive pulmonary disease, unspecified; E11.9 Type 2 diabetes mellitus without complications; F32.9 Major depressive disorder, single episode, unspecified; F41.9 Anxiety disorder, unspecified; E78.00 Pure hypercholesterolemia, unspecified; I69.354 Hemiplegia and hemiparesis following cerebral infarction affecting left non-dominant side; F17.210 Nicotine dependence, cigarettes, uncomplicated; Z79.02 Long term (current) use of antithrombotics/antiplatelets; Z79.84 Long term (current) use of oral hypoglycemic drugs; Z79.899 Other long term (current) drug therapy; Z88.0 Allergy status to penicillin; Z88.5 Allergy status to narcotic agent; Z91.018 Allergy to other foods; Z90.49 Acquired absence of other specified parts of digestive tract; Z90.710 Acquired absence of both cervix and uterus; Z98.890 Other specified postprocedural states; Z99.81 Dependence on supplemental oxygen; Z82.49 Family history of ischemic heart disease and other diseases of the circulatory system; Z82.3 Family history of stroke
CPT/HCPCS: 36415; 49565; 49568; 82962; 87635; 94640; C1781; J0330; J0690; J1100; J1170; J1885; J2405; J2704; J2710; J3010; J7120; J7613

== ENCOUNTER → 2020-04-22 | Outpatient (CLI) | payer MEDICARE, MEDICAID ==
[~2020-04-22] MED LIST changes: -BACITRACIN 50,000 UNIT ONE; -BUPIVACAINE/PF-EPI 0.5% 1:200K ONE; +SULF1TAB24 PO
== END | disposition home or self-care (01) ==
LOC: CFH 10:07
PROVIDERS: ATTEND Licensed Practical Nurse
DX: Z12.2 Encounter for screening for malignant neoplasm of respiratory organs (principal); M50.30 Other cervical disc degeneration, unspecified cervical region; M43.8X4 Other specified deforming dorsopathies, thoracic region; F17.210 Nicotine dependence, cigarettes, uncomplicated; Z90.49 Acquired absence of other specified parts of digestive tract
CPT/HCPCS: G0297

== ENCOUNTER 2020-08-29 10:32 | Emergency (ER) | payer MEDICARE, MEDICAID ==
[~2020-08-29] VITALS: Ht 162.6 cm; Wt 80.6 kg
--- NOTE | 2020-08-29 10:51 | NUR ---
NO ANSWER FROM TRIAGE
[2020-08-29 12:08] LABS: BASOPHILS % (AUTO) 0 % (0-1); EOSINOPHILS % (AUTO) 2 % (1-7); LYMPHOCYTES % (AUTO) 21 % (22-44); MEAN CORPUSCULAR HEMOGLOBIN 30.2 pg (27.0-34.8); MEAN CORPUSCULAR HGB CONC 33.9 g/dL (32.4-35.8); MONOCYTES % (AUTO) 6 % (2-9); NEUTROPHILS % (AUTO) 71 % (42-75); PLATELET COUNT 156 x10^3/uL (130-400); RED BLOOD COUNT 4.54 x10^6/uL (3.82-5.3); RED CELL DISTRIBUTION WIDTH 13.5 % (9.6-15.2)
[2020-08-29 12:12] LABS: MD NO
[2020-08-29 12:18] LABS: ANION GAP 4 mmol/L (5-15); CALCIUM 9.5 mg/dL (8.5-10.1); CHLORIDE 103 mmol/L (98-107)
[2020-08-29 12:19] LABS: CREATININE 0.93 mg/dL (0.55-1.02)
--- NOTE | 2020-08-29 13:55 | NUR ---
TO ROOM FROM LOBBY
--- NOTE | 2020-08-29 14:38 | NUR ---
PT. CAME IN C/O RUNNY NOSE, COUGH, SOB, CHILLS X3DAYS. STATES SHE WAS EXPOSED COVID "AFTER SHARING A CIGARETTE WITH A FRIEND" WHO WAS NOT WEARING GLOVES. STATES SHE WEARS 2.5L OXYGEN AT NIGHT. MONITOR CONNECTED. WARM BLANKET PROVIDED. NO NEEDS AT THIS TIME
[2020-08-29] MEDS ORDERED: DEXAMETHASONE 4 MG TABLET PO ONE (15:00)
[2020-08-29] MEDS ORDERED: ALBUTEROL/IPRATROPIUM 2.5MG/0.5MG, 3 ML NPPB ONE (15:00)
[2020-08-29] MEDS ORDERED: DEXAMETHASONE 4 MG TABLET ONE (15:10)
[2020-08-29] MEDS ORDERED: ALBUTEROL/IPRATROPIUM 2.5MG/0.5MG, 3 ML ONE (15:10)
--- NOTE | 2020-08-29 15:29 | NUR ---
DECADRON ADMINISTERED, NEBULIZED ADMINISTERING. PT. SITTING ON SIDE OF BED. NAD, CALL LIGHT WITHIN REACH
--- NOTE | 2020-08-29 15:37 | NUR ---
PT REPORTS BREATHING IMPROVEMENT. "YES, I FEEL LIKE I CAN BREATH BETTER"
[2020-08-29 15:38] VITALS: BP 154/82
== END 2020-08-29 17:03 | disposition home or self-care (01) ==
LOC: ED 15:28
DX: B34.9 Viral infection, unspecified (principal); F17.200 Nicotine dependence, unspecified, uncomplicated; I10 Essential (primary) hypertension; E11.9 Type 2 diabetes mellitus without complications; J44.9 Chronic obstructive pulmonary disease, unspecified; K21.9 Gastro-esophageal reflux disease without esophagitis; E78.5 Hyperlipidemia, unspecified; Z86.73 Personal history of transient ischemic attack (TIA), and cerebral infarction without residual deficits; Z90.49 Acquired absence of other specified parts of digestive tract; Z90.710 Acquired absence of both cervix and uterus; Z85.41 Personal history of malignant neoplasm of cervix uteri
CPT/HCPCS: 36415; 71045; 80048; 82040; 85025; 87635; 94640; 99284

== ENCOUNTER 2021-04-27 14:28 | Emergency (ER) | payer MEDICARE, MEDICAID ==
[~2021-04-27] VITALS: Ht 162.6 cm; Wt 85.0 kg
[~2021-04-27 14:28] MED LIST changes: +INSU100I13 SQ-INSULIN; +SULF-23 PO; -SULF1TAB24 PO
--- NOTE | 2021-04-27 14:39 | NUR ---
PT BIB EMS FROM HOME WITH C/O LOWER ABDOMEN PAIN. PT PRESENTS WITH HISTORY OF UMBILICAL/INGUINAL HERNIAS. PT ALSO REPORTS NAUSEA X 2 DAYS. PT EKG EN ROUTE TO HOSPITAL WAS UNREMARKABLE PER EMS. UPON ARRIVAL TO [facility] ED, PT PLACED ON 2L NC PER HOME USE. PT ATTACHED TO VS MONITORS. VSS AT THIS TIME. PT EDUCATED ON ER PROCESS AND POC AND VERBALIZES UNDERSTANDING. ERP TO SEE PT FOR HX AND ASSESSMENT. PT HAS CALL LIGHT WITHIN REACH AT THIS TIME. PT FSBS EN ROUTE TO HOSPITAL WAS 174
[2021-04-27] MEDS ORDERED: ONDANSETRON 2MG/ML, 2ML IVPush ONE (15:00)
[2021-04-27] MEDS ORDERED: SODIUM CHLORIDE FLUSH 10ML SYR IVF ONE (15:00)
[2021-04-27] MEDS ORDERED: HYDROmorphone 1 MG/ML, 1ML INJ IV ONE ×2 (15:00→19:30)
[2021-04-27] MEDS ORDERED: HYDROmorphone 1 MG/ML, 1ML INJ ONE ×2 (15:02→19:19)
[2021-04-27 15:22] LABS: BASOPHILS % (AUTO) 0 % (0-1); EOSINOPHILS % (AUTO) 1 % (1-7); LYMPHOCYTES % (AUTO) 19 % (22-44); MEAN CORPUSCULAR HEMOGLOBIN 30.9 pg (27.0-34.8); MEAN CORPUSCULAR HGB CONC 34.2 g/dL (32.4-35.8); MEAN PLATELET VOLUME 9.1 fL (7.4-10.4); MONOCYTES % (AUTO) 7 % (2-9); NEUTROPHILS % (AUTO) 72 % (42-75); PLATELET COUNT 189 x10^3/uL (130-400); RED BLOOD COUNT 4.38 x10^6/uL (3.82-5.3); RED CELL DISTRIBUTION WIDTH 12.7 % (9.6-15.2)
[2021-04-27 15:35] LABS: CALCIUM 10.2 mg/dL (8.5-10.1); CHLORIDE 100 mmol/L (98-107)
[2021-04-27 15:41] LABS: ALANINE AMINOTRANSFERASE 55 U/L (12-78); ALKALINE PHOSPHATASE 125 U/L (45-117); ANION GAP 9 mmol/L (5-15); BILIRUBIN,TOTAL 0.4 mg/dL (0.2-1.0); CREATININE 1.13 mg/dL (0.55-1.02); TOTAL PROTEIN 8.1 g/dL (6.4-8.2)
--- NOTE | 2021-04-27 17:11 | NUR ---
pt to imaging via [employer] at this time.
[2021-04-27 17:13] LABS: MICROSCOPIC AUTO
[2021-04-27] MEDS ORDERED: OMNIPAQUE 350 MG/ML, 100ML BOTTLE ONE (17:18)
--- NOTE | 2021-04-27 18:12 | NUR ---
PT ASLEEP IN [facility];
--- NOTE | 2021-04-27 18:51 | NUR ---
REPORT RECEIVED FROM JAQUELINE DELA CRUZ
--- NOTE | 2021-04-27 18:54 | NUR ---
REPORT OF PT TO LANIE GIORDANO. ALL QUESTIONS ANSWERED.
--- NOTE | 2021-04-27 19:44 | NUR ---
Patient & Caregiver given discharge instructions and they have confirmed that they understand the instructions. Patient ambulatory with steady gait. NAD, all questions answered appropriately, denies additional needs at this time. No personal belongings left in room after discharge.
[2021-04-27 19:45] VITALS: BP 120/63
== END 2021-04-27 19:47 | disposition home or self-care (01) ==
LOC: ED 15:44
DX: K43.9 Ventral hernia without obstruction or gangrene (principal); F17.210 Nicotine dependence, cigarettes, uncomplicated; J44.9 Chronic obstructive pulmonary disease, unspecified; E11.9 Type 2 diabetes mellitus without complications; K21.9 Gastro-esophageal reflux disease without esophagitis; E78.5 Hyperlipidemia, unspecified; Z86.73 Personal history of transient ischemic attack (TIA), and cerebral infarction without residual deficits
CPT/HCPCS: 36415; 74177; 80053; 81001; 85025; 87086; 96374; 96376; 99285; 99406; J1170; Q9967

== ENCOUNTER 2021-05-04 23:14 | Emergency (ER) | payer MEDICAID, MEDICARE ==
[~2021-05-04] VITALS: Ht 162.6 cm; Wt 85.7 kg
[2021-05-04 23:47] LABS: MICROSCOPIC AUTO
[2021-05-05 00:04] LABS: BASOPHILS % (AUTO) 1 % (0-1); EOSINOPHILS % (AUTO) 1 % (1-7); LYMPHOCYTES % (AUTO) 21 % (22-44); MEAN CORPUSCULAR HEMOGLOBIN 31.5 pg (27.0-34.8); MEAN CORPUSCULAR HGB CONC 35.2 g/dL (32.4-35.8); MONOCYTES % (AUTO) 7 % (2-9); NEUTROPHILS % (AUTO) 71 % (42-75); PLATELET COUNT 166 x10^3/uL (130-400); RED BLOOD COUNT 4.09 x10^6/uL (3.82-5.3); RED CELL DISTRIBUTION WIDTH 12.7 % (9.6-15.2)
[2021-05-05 00:13] VITALS: BP 141/65
[2021-05-05 00:15] LABS: ALANINE AMINOTRANSFERASE 42 U/L (12-78); ALBUMIN 3.7 g/dL (3.4-5.0); ANION GAP 6 mmol/L (5-15); CALCIUM 10.1 mg/dL (8.5-10.1); CHLORIDE 100 mmol/L (98-107)
[2021-05-05 00:17] LABS: ALKALINE PHOSPHATASE 190 U/L (45-117); BILIRUBIN,TOTAL 0.3 mg/dL (0.2-1.0); CREATININE 1.25 mg/dL (0.55-1.02); TOTAL PROTEIN 7.4 g/dL (6.4-8.2)
[2021-05-05] MEDS ORDERED: METHOCARBAMOL 500 MG TABLET PO ONE (01:00)
[2021-05-05] MEDS ORDERED: METHOCARBAMOL 500 MG TABLET ONE (01:00)
== END 2021-05-05 01:17 | disposition home or self-care (01) ==
LOC: ED 23:27
DX: M54.5 Low back pain (principal); R10.9 Unspecified abdominal pain; F17.210 Nicotine dependence, cigarettes, uncomplicated; I10 Essential (primary) hypertension; E11.9 Type 2 diabetes mellitus without complications; J44.9 Chronic obstructive pulmonary disease, unspecified; K21.9 Gastro-esophageal reflux disease without esophagitis; Z86.73 Personal history of transient ischemic attack (TIA), and cerebral infarction without residual deficits; Z90.49 Acquired absence of other specified parts of digestive tract; Z90.710 Acquired absence of both cervix and uterus; Z85.41 Personal history of malignant neoplasm of cervix uteri
CPT/HCPCS: 36415; 80053; 81001; 83690; 85025; 99283; 99406

== ENCOUNTER → 2021-05-19 | Outpatient (CLI) | payer MEDICARE, MEDICAID ==
[~2021-05-19] MED LIST changes: +OMNIPAQUE 350 MG/ML, 100ML BOTTLE ONE
== END | disposition home or self-care (01) ==
LOC: RAD 12:24
PROVIDERS: ATTEND Registered Nurse
DX: E27.8 Other specified disorders of adrenal gland (principal); M48.55XA Collapsed vertebra, not elsewhere classified, thoracolumbar region, initial encounter for fracture; M62.08 Separation of muscle (nontraumatic), other site; R10.31 Right lower quadrant pain; R13.10 Dysphagia, unspecified; K59.00 Constipation, unspecified; K21.9 Gastro-esophageal reflux disease without esophagitis
CPT/HCPCS: 74177; Q9967

== ENCOUNTER → 2021-05-22 | Outpatient (CLI) | payer MEDICARE, MEDICAID ==
[~2021-05-22] MED LIST changes: -OMNIPAQUE 350 MG/ML, 100ML BOTTLE ONE
== END | disposition home or self-care (01) ==
LOC: RAD 12:17
PROVIDERS: ATTEND Registered Nurse
DX: R13.10 Dysphagia, unspecified (principal); K59.00 Constipation, unspecified; K21.9 Gastro-esophageal reflux disease without esophagitis; R10.31 Right lower quadrant pain
CPT/HCPCS: 74220